=== PATIENT | female | born 1970 | race Caucasian/White ===

== ENCOUNTER 2016-09-29 12:20 | Emergency (ER) | payer OTHER ==
[~2016-09-29] VITALS: Wt 46.0 kg
[~2016-09-29 12:20] MED LIST: LEVE-5 PO
[2016-09-29] MEDS ORDERED: SOD CHLORIDE 0.9% 1,000 ML IV STA (19:51)
[2016-09-29] MEDS ORDERED: morphine 4 MG/ML VIAL IV STA (19:51)
[2016-09-29] MEDS ORDERED: ONDANSETRON 4 MG INJ IV STA (19:51)
[2016-09-29] MEDS ORDERED: LIDOCAINE/MYLANTA 40 ML BTL PO ONE (20:00)
--- NOTE | 2016-09-29 20:43 | RADRPT ---
PROCEDURE: Right upper quadrant abdominal ultrasound. CLINICAL INDICATION: Abdominal pain TECHNIQUE: De scale and color doppler ultrasound images of the right upper quadrant. COMPARISON: None FINDINGS: Pancreas: Visualized portions appear of normal echogenicity, no focal lesions. Liver: Morphology: Normal in size and contour. Echogenicity: Mildly increased echogenicity of the liver suggestive of hepatic steatosis. Focal lesions: None. Main portal vein: Patent with hepatopetal flow. Biliary System: Normal appearing gallbladder wall. No definite mobile shadowing gallstones are seen. There are several nonshadowing echogenic foci in continuity with the gallbladder wall likely representing small polyps measuring 3 - 5 mm. No intrahepatic biliary dilatation. Common bile duct measures 4.0 mm in maximal dimension. Kidneys: Right 10.3 cm in length. Right renal cortical thickness is preserved. Normal echogenicity. No hydronephrosis. No renal calculi. No focal lesions. No free fluid identified. IMPRESSION: Normal thickness of the gallbladder wall; no sonographic evidence of cholecystitis. No definite shadowing gallstones are seen. Normal caliber intrahepatic and extrahepatic biliary sys tem. Several nonshadowing echogenic foci within the gallbladder measuring 3 - 5 mm concerning for multipl e gallbladder polyps. Follow-up examination in 12 months is recommended. RPTAT: AADD .Ankit Eid MD, Date Time Electronically viewed and signed by .Ankit Eid MD, on 09/29/2016 20:42 .B/
[2016-09-29] MEDS ORDERED: ATOR20TA38 PO (20:47)
[2016-09-29 20:57] LABS: ADD SCAN DIFF NO
[2016-09-29 20:58] LABS: BASOPHILS % 0.3 % (0.0-2.0); EOSINOPHILS % 0.3 % (0.0-7.0); HEMATOCRIT 36.8 % (37.0-47.0); HEMOGLOBIN 13.4 g/dl (12.0-16.0); LYMPHOCYTES % 12.9 % (15.0-51.0); MEAN CORPUSCULAR HEMOGLOBIN 34.3 pg (29.0-33.0); MEAN CORPUSCULAR HGB CONC 36.4 g/dl (32.0-37.0); MEAN CORPUSCULAR VOLUME 94.1 fl (82.0-101.0); MEAN PLATELET VOLUME 10.2 fl (7.4-10.4); MONOCYTE # 0.7 10^3/ul (0.3-0.9); MONOCYTES % 9.2 % (0.0-11.0); NEUTROPHIL # 6.1 10^3/ul (1.6-7.5); NEUTROPHILS % 76.8 % (39.0-77.0); PLATELET COUNT 115 10^3/UL (140-415); RED BLOOD COUNT 3.91 10^6/ul (4.20-5.40); RED CELL DISTRIBUTION WIDTH 11.9 % (11.5-14.5)
[2016-09-29 21:08] LABS: ALBUMIN 5.3 g/dl (3.3-4.9); CHLORIDE 80 mmol/L (97-110)
[2016-09-29 21:09] LABS: SODIUM 128 mmol/L (135-144)
[2016-09-29 21:11] LABS: ALANINE AMINOTRANSFERASE 54 IU/L (13-69); ALKALINE PHOSPHATASE 66 IU/L (42-121); ANION GAP 25 (8-16); ASPARTATE AMINO TRANSFERASE 81 IU/L (15-46); BILIRUBIN,INDIRECT 1.1 mg/dl (0-1.1); BILIRUBIN,TOTAL 1.1 mg/dl (0.2-1.3); BLOOD UREA NITROGEN 23 mg/dl (7-20); CARBON DIOXIDE 26 mmol/L (21-31); CREATININE 0.72 mg/dl (0.44-1.00); GLUCOSE 129 mg/dl (70-220); TOTAL PROTEIN 8.6 g/dl (6.1-8.1)
[2016-09-29 21:12] LABS: CALCIUM 11.5 mg/dl (8.4-10.2)
[2016-09-29 21:26] LABS: TROPONIN-I < 0.012 ng/ml (0.00-0.12)
[2016-09-29] MEDS ORDERED: POTASSIUM CHLORIDE (SR) 20 MEQ TAB PO STA (21:35)
[2016-09-29] MEDS ORDERED: HYDR-902 PO (21:37)
[2016-09-29] MEDS ORDERED: ONDA4TAB14 PO (21:37)
--- NOTE | 2016-09-29 21:39 | ERD ---
ER Documentation Chief Complaint Date/Time DATE: 09/29/16 TIME: 21:38 Chief Complaint VOMITING, CHEST PAIN, WEAKNESS, DIZZY X 4 DAYS HPI Patient is a 46-year-old female with seizures who presents with abdominal pain and vomiting. The patient's symptoms started on Sunday. She is unable to keep anything down. She has been vomiting food and fluids. She says that she lost 11 pounds in the last 5 days. She has not been able to sleep. She has epigastric abdominal pain which is a burning. She has no diarrhea. She goes to a local clinic for her care. ROS All systems reviewed and are negative except as per history of present illness. Medications Home Meds Active Scripts Ondansetron (Ondansetron Odt) 4 Mg Tab.rapdis, 4 MG PO Q6H Y for NAUSEA AND/OR VOMITING, #30 TAB Prov:LUIS MELÉNDEZ MD 09/29/16 Hydrocodone/Acetaminophen ([place] 10-325 Tablet) 1 Each Tablet, 1 TAB PO Q6H Y for PAIN, #7 TAB Prov:LUIS MELÉNDEZ MD 09/29/16 Levetiracetam* (Keppra*) 500 Mg Tablet, 500 MG PO BID, #60 TAB Prov:ROSALIA FONSECA 06/18/15 Reported Medications Atorvastatin Calcium* (Atorvastatin Calcium*) 20 Mg Tablet, 20 MG PO DAILY, #30 TAB 09/29/16 Allergies Allergies: Coded Allergies: phenytoin (Verified Allergy, Unknown, 09/29/16) PMhx/Soc History of Surgery: Yes (lumbar fusion) Anesthesia Reaction: No Hx Neurological Disorder: Yes (seizure) Hx Respiratory Disorders: No Hx Cardiac Disorders: Yes (high cholesterol) Hx Psychiatric Problems: No Hx Miscellaneous Medical Probl: No Hx Alcohol Use: Yes (occasionally) Hx Substance Use: No Hx Tobacco Use: Yes Smoking Status: Current some day smoker FmHx Family History: No diabetes Physical Exam Vitals Vital Signs Date Time Temp Pulse Resp B/P Pulse Ox O2 Delivery O2 Flow Rate FiO2 09/29/16 12:30 97.0 60 18 120/82 99 Physical Exam Const: Mild distress secondary to pain Head: Atraumatic Eyes: Normal Conjunctiva ENT: Normal External Ears, Nose and Mouth. Neck: Full range of motion..~ No meningismus. Resp: Clear to auscultation bilaterally Cardio: Regular rate and rhythm, no murmurs Abd: Soft, midepigastric tenderness to palpation without rebound or guarding Skin: No petechiae or rashes Back: No midline or flank tenderness Ext: No cyanosis, or edema Neur: Awake and alert Psych: Normal Mood and Affect Result Diagram: 09/29/16202909/29/162029 Results 24 hrs Laboratory Tests Test 09/29/16 20:30 White Blood Count 8.010^3/ul Red Blood Count 3.9110^6/ul Hemoglobin 13.4g/dl Hematocrit 36.8% Mean Corpuscular Volume 94.1fl Mean Corpuscular Hemoglobin 34.3pg Mean Corpuscular Hemoglobin Concent 36.4g/dl Red Cell Distribution Width 11.9% Platelet Count 87209^3/UL Mean Platelet Volume 10.2fl Neutrophils % 76.8% Lymphocytes % 12.9% Monocytes % 9.2% Eosinophils % 0.3% Basophils % 0.3% Nucleated Red Blood Cells % 0.0/100WBC Neutrophils # 6.110^3/ul Lymphocytes # 1.010^3/ul Monocytes # 0.710^3/ul Eosinophils # 0.010^3/ul Basophils # 0.010^3/ul Nucleated Red Blood Cells # 0.010^3/ul Sodium Level 128mmol/L Potassium Level 3.0mmol/L Chloride Level 80mmol/L Carbon Dioxide Level 26mmol/L Anion Gap 25 Blood Urea Nitrogen 23mg/dl Creatinine 0.72mg/dl Glucose Level 129mg/dl Calcium Level 11.5mg/dl Total Bilirubin 1.1mg/dl Direct Bilirubin 0.00mg/dl Indirect Bilirubin 1.1mg/dl Aspartate Amino Transf (AST/SGOT) 81IU/L Alanine Aminotransferase (ALT/SGPT) 54IU/L Alkaline Phosphatase 66IU/L Troponin I < 0.012ng/ml Total Protein 8.6g/dl Albumin 5.3g/dl Globulin 3.30g/dl Albumin/Globulin Ratio 1.60 Lipase 1832U/L Current Medications Medications (Trade) Dose Ordered Sig/Christiano Route PRN Reason Start Time Stop Time Status Last Admin Dose Admin Sodium Chloride (NS) 1,000 ml @ 1,000 mls/hr Q1H STAT IV 09/29/16 19:51 09/29/16 20:50 DC 09/29/16 20:53 Morphine Sulfate (morphine) 4 mg ONCE STAT IV 09/29/16 19:51 09/29/16 19:53 DC 09/29/16 20:53 Ondansetron HCl (Zofran Inj) 4 mg ONCE STAT IV 09/29/16 19:51 09/29/16 19:53 DC 09/29/16 20:53 Miscellaneous Medication (Gi Cocktail (2)) 40 ml ONCE ONCE PO 09/29/16 20:00 09/29/16 20:01 DC 09/29/16 20:53 Potassium Chloride (Klor-Con 20) 40 meq ONCE STAT PO 09/29/16 21:35 09/29/16 21:36 DC Procedures/MDM EKG read by me: Rate/Rhythm: Sinus tachycardia at a rate of 132 Intervals: Normal Impression: Sinus tachycardia without evidence of ischemia Ultrasound shows gallbladder polyps but no sign of cholecystitis. Smoking Cessation Therapy: Pt. was lectured for greater than 3 minutes on the health risks of continued smoking and the benefits of cessation. Patient is a 46-year-old female with seizures who presents with abdominal pain and vomiting. She was found to have acute pancreatitis with a lipase of 1800. The patient had hyponatremia and hypokalemia which is likely from her persistent vomiting over the past few days. I gave her fluids as well as morphine and Zofran and she feels much better. I offered her admission but she would prefer to go home at this time. I do believe that outpatient management would be reasonable and she will be given a prescription for [place] and Zofran. She can return for any worsening symptoms. She should follow-up with her primary doctor within 24 hours for reevaluation. At this point I doubt cholecystitis or appendicitis. She says that prior to this vomiting she did drink alcohol for 4 days in a row. She was given potassium by mouth to replete her potassium of 3.0. For her sodium of 128 she did receive 1 L of normal saline for fluid bolus. Departure Diagnosis: Primary Impression: Pancreatitis Chronicity: acute Pancreatitis type: alcohol induced Acute pancreatitis complication: unspecified Qualified Code: K85.20 - Alcohol-induced acute pancreatitis, unspecified complication status Additional Impressions: Hyponatremia Hypokalemia Condition: Fair Patient Instructions: Pancreatitis Referrals: Your doctor Additional Instructions: Call your primary care doctor TOMORROW for an appointment during the next 1-2 days.See the doctor sooner or return here if your condition worsens before your appointment time. LUIS MELÉNDEZ MD Sep 29, 2016 21:38
[2016-09-29 22:00] VITALS: BP 135/86; PULSE 83; RESP 16
== END 2016-09-29 22:38 | disposition home or self-care (01) ==
LOC: E/R 12:20
DX: K85.20 Alcohol induced acute pancreatitis without necrosis or infection (principal); R40.2252 Coma scale, best verbal response, oriented, at arrival to emergency department; E87.1 Hypo-osmolality and hyponatremia; E87.6 Hypokalemia; F17.210 Nicotine dependence, cigarettes, uncomplicated; R11.10 Vomiting, unspecified; R40.2142 Coma scale, eyes open, spontaneous, at arrival to emergency department; R40.2362 Coma scale, best motor response, obeys commands, at arrival to emergency department
CPT/HCPCS: 36415; 76705; 80053; 83690; 84484; 85025; 96374; 96375; J2270; J2405; J7030; Z7502; Z7610; 93005